=== PATIENT | female | born 1980 | race Caucasian/White ===

== ENCOUNTER 2018-03-10 07:09 | Day surgery (SDC) | payer OTHER ==
[2018-03-10] MEDS ORDERED: DIPHENHYDRAMINE 50 MG INJ (09:04)
[2018-03-10] MEDS ORDERED: FENTAnyl 50 MCG/ML VIAL (09:22)
[2018-03-10] MEDS ORDERED: MIDAZOLAM 1 MG/ML 2 ML INJ ×4 (09:22)
== END 2018-03-10 12:02 | disposition home or self-care (01) ==
LOC: GIL 07:09
DX: R19.4 Change in bowel habit (principal); K64.8 Other hemorrhoids
CPT/HCPCS: 45380; 84703; 88305